=== PATIENT | female | born 2000 | race Caucasian/White ===

== ENCOUNTER 2020-11-23 16:28 | Emergency (ER) | payer SELFPAY ==
[2020-11-23 17:48] VITALS: BP 124/85
[2020-11-23 18:22] LABS: HEMATOCRIT 39.2 % (36.0-47.0); HEMOGLOBIN 13.5 g/dl (12.0-15.5); MEAN CORPUSCULAR HEMOGLOBIN 29.8 pg (27.0-33.0); MEAN CORPUSCULAR HGB CONC 34.4 g/dl (32.0-36.5); MEAN CORPUSCULAR VOLUME 86.5 fl (80.0-96.0); PLATELET COUNT, AUTOMATED 234 10^3/uL (150-450); RED BLOOD COUNT 4.53 10^6/uL (4.00-5.40); WHITE BLOOD COUNT 8.6 10^3/uL (4.0-10.0)
== END 2020-11-23 19:58 | disposition home or self-care (01) ==
LOC: M ED 17:26
DX: O03.4 Incomplete spontaneous abortion without complication (principal); N83.209 Unspecified ovarian cyst, unspecified side; Z3A.14 14 weeks gestation of pregnancy

== ENCOUNTER → 2020-11-23 | Outpatient (CLI) | payer SELFPAY ==
--- NOTE | 2020-11-23 16:00 | REP ---
INDICATION: VIABILITY, 14 WEEKS. COMPARISON: None. TECHNIQUE: Multiple ultrasonographic images of the pelvis including Doppler ultrasound, transabdominal ultrasound and endovaginal ultrasound. FINDINGS: The uterus is anteverted and normal size measuring 6.7 x 2.4 x 4.2 cm. There is no visible intrauterine gestation. The endometrium is not thickened measuring 3.0 mm. Right ovary: The right ovary is normal size measuring 3.8 x 1.9 x 1.5 cm. There is no dominant right ovarian mass or cyst. However, there is a right para ovarian complex mass measuring 3.6 x 2.5 x 2.8 cm. Left ovary: The left ovary is normal size measuring 2.9 x 1.7 x 2.1 cm. There is no dominant left ovarian mass or cyst. There is vascular flow in both ovaries. The Doppler resistive index in the parenchymal arteries of the right ovary is 0.59 and left ovary 0.45. IMPRESSION: There is no intrauterine gestation. However, there is a right para ovarian complex mass measuring 3.6 x 2.5 x 2.8 cm, possibly an ectopic gestation. There is no free fluid in the pelvis. <Electronically signed by Armen Romeo > 11/23/20 2416
== END ==
LOC: M RAD 14:43
PROVIDERS: ATTEND Emergency Medicine
DX: N83.8 Other noninflammatory disorders of ovary, fallopian tube and broad ligament (principal); R10.9 Unspecified abdominal pain